=== PATIENT | female | born 1970 | race Caucasian/White ===

== ENCOUNTER 2020-01-14 09:30 | Emergency (ER) | payer OTHER ==
[2020-01-14] MEDS ORDERED: Meclizine 25 MG Tab PO ONE (09:58)
[2020-01-14] MEDS ORDERED: Ondansetron 4 MG Tab.DIS PO ONE (09:59)
--- NOTE | 2020-01-14 10:13 | EDM.PDOC ---
ED HPI GENERAL MEDICAL PROBLEM - General Chief Complaint: Neuro Symptoms/Deficits Stated Complaint: VERTIGO Time Seen by Provider: 01/14/20 09:41 - History of Present Illness INITIAL COMMENTS - FREE TEXT/NARRATIVE: History of present illness: Patient presents with concerns over vertigo for the past 3 days she has inducible and fatigable spinning type sensations especially when she lays down on her left side this makes her nauseous and she is thrown up several times meclizine seem to help at home and being still and sitting upright seems to make it better. The episodes last a couple minutes when she goes on her left side but fatigue especially if she changes back into another position to more comfortable. She has had some ear pressure in the left ear she denies any cough fever congestion otherwise there is been some mild headache no trauma no fever. [] Review of systems: As per history of present illness and below otherwise all systems reviewed and negative. Past medical history: As per history of present illness and as reviewed below otherwise noncontributory. Surgical history: As per history of present illness and as reviewed below otherwise noncontributory. Social history: No reported history of drug or alcohol abuse. Family history: As per history of present illness and as reviewed below otherwise noncontributory. Physical exam: HEENT: Atraumatic, normocephalic, pupils reactive, negative for conjunctival pallor or scleral icterus, mucous membranes moist, throat clear, neck supple, nontender, trachea midline. Lungs: Clear to auscultation, breath sounds equal bilaterally, chest nontender. Heart: S1S2, regular, negative for clicks, rubs, or JVD. Abdomen: Soft, nondistended, nontender. Negative for masses or hepatosplenomegaly. Negative for costovertebral tenderness. Pelvis: Stable nontender. Genitourinary: Deferred. Rectal: Deferred. Extremities: Atraumatic, negative for cords or calf pain. Neurovascular unremarkable. Neuro: Awake, alert, oriented. Cranial nerves II through XII unremarkable. Cerebellum unremarkable. Motor and sensory unremarkable throughout. Exam nonfocal. 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 - Related Data Allergies Allergy/AdvReac Type Severity Reaction Status Date / Time Sulfa (Sulfonamide Allergy Hives Verified 01/14/20 09:48 Antibiotics) Home Meds: Home Meds Celecoxib [CeleBREX] 100 mg PO DAILY 01/14/20 [History] Loratadine [Claritin] 10 mg PO DAILY 01/14/20 [History] Meclizine HCl 25 mg PO TID #20 tablet 01/14/20 [Rx] Montelukast Sodium [Singulair] 10 mg PO DAILY 01/14/20 [History] Ondansetron [Zofran ODT] 4 mg PO Q6H PRN 5 Days #12 tab.dis 01/14/20 [Rx] Past Medical History HEENT History: Reports: Other (See Below) Other HEENT History: Allergies Musculoskeletal History: Reports: Other (See Below) Other Musculoskeletal History: Bilateral knee pain - Infectious Disease History Infectious Disease History: Reports: None Social & Family History - Family History Family Medical History: Noncontributory - Tobacco Use Smoking Status *Q: Never Smoker ED ROS GENERAL - Review of Systems Review Of Systems: See Below ED EXAM, GENERAL - Physical Exam Exam: See Below Course - Vital Signs Last Recorded V/S: Last Vital Signs Temp 35.6 C L 01/14/20 09:49 Pulse 72 01/14/20 09:49 Resp 16 01/14/20 09:49 BP 113/65 01/14/20 09:49 Pulse Ox 97 01/14/20 09:49 - Orders/Labs/Meds Meds: Medications Discontinued Medications Generic Name Dose Route Start Last Admin Trade Name Freq PRN Reason Stop Dose Admin Meclizine HCl 25 mg 01/14/20 09:58 01/14/20 10:03 Antivert PO 01/14/20 09:59 25 mg ONETIME ONE Administration Ondansetron HCl 4 mg 01/14/20 09:59 01/14/20 10:03 Zofran Odt PO 01/14/20 10:00 4 mg ONETIME ONE Administration Departure - Departure Time of Disposition: 10:06 Disposition: Home, Self-Care 01 Condition: Good Clinical Impression: Vertigo - Discharge Information *PRESCRIPTION DRUG MONITORING PROGRAM REVIEWED*: Not Applicable *COPY OF PRESCRIPTION DRUG MONITORING REPORT IN PATIENT MARIO: Not Applicable Instructions: How to Perform the Donn Maneuver, Dizziness, [id number] Referrals: PCP,None [Primary Care Provider] - Additional Instructions: The following information is given to patients seen in the emergency department who are being discharged to home. This information is to outline your options for follow-up care. We provide all patients seen in our emergency department with a follow-up referral. The need for follow-up, as well as the timing and circumstances, are variable depending upon the specifics of your emergency department visit. If you don't have a primary care physician on staff, we will provide you with a referral. We always advise you to contact your personal physician following an emergency department visit to inform them of the circumstance of the visit and for follow-up with them and/or the need for any referrals to a consulting specialist. The emergency department will also refer you to a specialist when appropriate. This referral assures that you have the opportunity for follow-up care with a specialist. All of these measure are taken in an effort to provide you with optimal care, which includes your follow-up. Under all circumstances we always encourage you to contact your private physician who remains a resource for coordinating your care. When calling for follow-up care, please make the office aware that this follow-up is from your recent emergency room visit. If for any reason you are refused follow-up, please contact the [facility] Emergency Department at and asked to speak to the emergency department charge nurse. [facility] [address] [place] [id number] [facility] [address] [place] [id number] Sepsis Event Note - Evaluation Sepsis Screening Result: No Definite Risk - Focused Exam Vital Signs: Vital Signs Temp Pulse Resp BP Pulse Ox 01/14/20 09:49 35.6 C L 72 16 113/65 97 Date Exam was Performed: 01/14/20 Time Exam was Performed: 10:04
== END 2020-01-14 10:35 | disposition home or self-care (01) ==
LOC: MW.ED 09:30
DX: R42 Dizziness and giddiness (principal); Z88.2 Allergy status to sulfonamides; Z79.899 Other long term (current) drug therapy
CPT/HCPCS: 99283; A9270; 99282